=== PATIENT | male | born 1955 | race Caucasian/White ===

== ENCOUNTER → 2018-07-10 | Outpatient (CLI) | payer OTHER ==
[~2018-07-10] MED LIST: ASP325T PO; ATOR40TA PO; EZET1TAB53 PO; OMEP-10 PO; OXYC-12 PO
== END | disposition home or self-care (01) ==
LOC: PREOP 05:59
PROVIDERS: ATTEND Surgery
DX: Z01.818 Encounter for other preprocedural examination (principal)

== ENCOUNTER 2019-02-01 05:36 | Outpatient (CLI) | payer BC ==
[~2019-02-01] VITALS: Ht 177 cm; Wt 91.3 kg
[2019-02-01] MEDS ORDERED: GABA-488 PO (11:47)
[2019-02-01] MEDS ORDERED: SIMV20TA3 PO (11:47)
[2019-02-01] MEDS ORDERED: HYDR-3820 PO (11:47)
[2019-02-01] MEDS ORDERED: PANT40TA3 PO (11:47)
[2019-02-01] MEDS ORDERED: CYCL10TA9 PO (11:47)
[2019-02-01] MEDS ORDERED: VENL37.52 PO (11:47)
== END 2019-02-01 11:48 | disposition home or self-care (01) ==
LOC: PREOP 05:36
PROVIDERS: ATTEND Surgery
DX: Z01.818 Encounter for other preprocedural examination (principal)

== ENCOUNTER → 2019-06-12 | Outpatient (CLI) | payer BC ==
[~2019-06-12] MED LIST changes: +CYCL10TA9 PO; +GABA-488 PO; +HYDR-3820 PO; +PANT40TA3 PO; +SIMV20TA26 PO; +VENL37.52 PO
== END | disposition home or self-care (01) ==
LOC: PREOP 05:30
PROVIDERS: ATTEND Surgery
DX: Z01.818 Encounter for other preprocedural examination (principal)

== ENCOUNTER → 2019-07-09 | Outpatient (CLI) | payer BC, OTHER ==
[~2019-07-09] MED LIST changes: +ACHYD1T PO; -HYDR-3820 PO
--- NOTE | 2019-07-09 12:41 | Diagnostic Imaging Report ---
INDICATION: Pain COMPARISON: None available. TECHNIQUE: Two radiographs of the right knee are dated 07/09/2019. FINDINGS: No acute fracture or dislocation. No destructive osseous process. Mild medial joint space narrowing. Minimal lateral joint space narrowing. Tricompartment osteophytosis, mild in severity, greatest within the medial compartment. No significant joint effusion. No suspicious radiopaque foreign body. IMPRESSION: No acute osseous abnormality with mild degenerative changes. Dictated by: Dictated on workstation # [id number]
--- NOTE | 2019-07-09 12:47 | Diagnostic Imaging Report ---
HISTORY: Right shoulder pain TECHNIQUE: 2 views of the right shoulder. COMPARISON: None FINDINGS: There are advanced degenerative changes in the right acromial clavicular joint. Mild degenerative changes seen in the glenohumeral joint. No acute fracture seen. Alignment appears normal. IMPRESSION: 1. Advanced degenerative changes in the right acromioclavicular joint with no acute osseous abnormalities seen. Dictated by: Dictated on workstation # [id number]
--- NOTE | 2019-07-09 12:53 | Diagnostic Imaging Report ---
INDICATION: Pain. COMPARISON: None available. TECHNIQUE: Three radiographs of the lumbar spine dated July 09, 2019. FINDINGS: Five lumbar-type vertebral bodies are present. Mild apex left curvature of the spine. No significant anterolisthesis or retrolisthesis. Besides endplate degenerative changes, vertebral body heights are well maintained. Moderate disc space height loss at L3/L4, L4/L5, and L5/S1 with mild disc space height loss at L1/L2 and L2/L3. Multilevel anterior osteophyte formation, particularly at L3/L4. Scattered facet joint degenerative changes, greatest within the lower lumbar spine. Prominent lateral osteophyte formation on the right at L4/L5 and on the left at L5/S1. The sacroiliac joints are intact. The pubic symphysis is intact. Surgical clips within the upper abdomen. No acute fracture or dislocation. IMPRESSION: Mild apex left curvature of the spine with moderate multilevel degenerative changes, as described above, greatest at L4/L5 and L5/S1. Dictated by: Dictated on workstation # [id number]
== END ==
LOC: RAD 09:57
PROVIDERS: ATTEND Family Medicine
DX: Z02.71 Encounter for disability determination (principal); M47.817 Spondylosis without myelopathy or radiculopathy, lumbosacral region; M19.011 Primary osteoarthritis, right shoulder
CPT/HCPCS: 72100; 73030; 73560

== ENCOUNTER → 2020-09-10 | Outpatient (CLI) | payer BC ==
[~2020-09-10] MED LIST changes: -PANT40TA3 PO; +PANT40TA52 PO
--- NOTE | 2020-09-10 11:20 | Diagnostic Imaging Report ---
PROCEDURE: MR imaging cervical spine without contrast. TECHNIQUE: Multiplanar, multisequence MR imaging of the cervical spine was performed without contrast. INDICATION: Increasing neck pain. History of prior surgery. COMPARISON: None. FINDINGS: No acute fracture or dislocation is seen in the cervical spine. Postsurgical changes of laminectomy and posterior fusion are visualized from C3 to C7. There is straightening of the cervical spine. The vertebral body heights are well maintained. The bone marrow signal is unremarkable. No focal osseous lesions. The craniocervical junction is maintained. The cervical spinal cord demonstrates normal intrinsic signal. No epidural collections are seen. The included brainstem and posterior fossa have normal appearance. Multilevel degenerative changes are seen in the cervical spine with posterior disc bulges and uncovertebral arthropathy. C2-C3: Uncovertebral arthropathy results in no significant spinal canal narrowing and mild right and moderate left foraminal stenosis. C3-C4: Disc osteophyte complex and uncovertebral arthropathy results in no significant spinal canal narrowing and kbvr-ub-juwsiujq bilateral foraminal narrowing. C4-C5: Disc osteophyte complex and uncovertebral arthropathy results in no significant spinal canal narrowing and moderate right and mild left foraminal narrowing. C5-C6: Disc osteophyte complex and uncovertebral arthropathy results in no significant spinal canal narrowing and mild bilateral foraminal narrowing. C6-C7: Disc osteophyte complex and uncovertebral arthropathy results in no significant spinal canal narrowing and moderate right and gxvn-dy-qdukxpgn left foraminal stenosis. C7-T1: Uncovertebral arthropathy results in no significant spinal canal narrowing and nhqd-wi-kepnaxdd right and moderate left foraminal stenosis. The soft tissues of neck are unremarkable. IMPRESSION: 1. No acute fracture or dislocation of the cervical spine. 2. Multilevel degenerative changes in the cervical spine with varying degrees of foraminal stenosis throughout the cervical spine. 3. Postsurgical changes of posterior fusion and laminectomy from C3 to C7. There has been successful posterior decompression throughout the cervical spine. Dictated by: Dictated on workstation # [id number]
--- NOTE | 2020-09-10 12:56 | Diagnostic Imaging Report ---
TECHNIQUE: Multiplanar and multisequence MRI of the thoracic spine is performed without contrast. REASON FOR EXAM: Mid back pain. Worsening over time. COMPARISON: None. FINDINGS: No acute fracture or dislocation is seen in the thoracic spine. Alignment is anatomic. Vertebral body heights are maintained. Modic type I endplate degenerative changes are present at the T1-T2 and T2-T3 levels with Modic type II endplate degenerative changes at the T7-T8 level. No suspicious focal osseous lesions are identified. No evidence of acute spinal canal stenosis. The thoracic spinal cord demonstrates normal intrinsic signal. No evidence of cord expansion. No epidural collections are seen. Degenerative changes are seen in the thoracic spine with disc height loss, posterior disc bulges, marginal osteophytes, and facet hypertrophy. These are greatest at the T1-T2 level with mild spinal canal narrowing and moderate bilateral foraminal stenosis and at the T2-T3 level with mild to moderate spinal canal stenosis and moderate to severe right and moderate left foraminal stenosis. The soft tissues of the thoracic spine are unremarkable. Included lungs are clear. IMPRESSION: 1. No acute fracture or dislocation in the thoracic spine. 2. Multilevel degenerative changes in the thoracic spine, greatest in the upper thoracic spine at the T1-T2 and T2-T3 levels. 3. Modic type I endplate degenerative changes at the T1-T2 and T2-T3 levels. More chronic Modic type II endplate degenerative changes are present at T7-T8. Dictated by: Dictated on workstation # [id number]
== END ==
LOC: RAD 09:42
PROVIDERS: ATTEND Family Medicine
DX: M47.813 Spondylosis without myelopathy or radiculopathy, cervicothoracic region (principal); Z98.890 Other specified postprocedural states
CPT/HCPCS: 72141; 72146

== ENCOUNTER 2021-02-17 10:35 | Emergency (ER) | payer BC ==
[~2021-02-17] VITALS: Ht 175 cm; Wt 88.0 kg
--- OUTSIDE RECORDS SUMMARY | 2021-02-17 10:39 | XMS REPORT | Clinical Summary ---
Author Author [facility] Organization [facility] Address Unknown Phone Unavailable Care Team Providers Care Disability Insurance Hearing Officer Name Role Phone Seble Long MD PCP Source Comments Some departments are not documenting in the electronic medical record. If you d o not see the information that you expected, contact Release of Information in [facility] [employer] Information Management department at [phone] for further assistan ce in locating additional records.[facility] Allergies Comments Active Allergy Reactions Severity Noted Date lockjaw Prochlorperazine SEE COMMENTS Low 11/11/2020 Medications End Date Status Medication Sig Dispensed Refills Start Date Active duloxetine DR (CYMBALTA) 0 30 mg capsule 1 Active cyclobenzaprine 0 (FLEXERIL) 10 mg tablet 1 Active HYDROcodone/acetaminophen every 8 hours 0 04/25 (NORCO) 10/325 mg tablet 8 Active gabapentin (NEURONTIN) 1 capsule in 0 300 mg capsule the morning, 1 capsule in afternoon and 2 capsules at bedtime Active simvastatin (ZOCOR) 20 mg every 24 0 tablet hours. Active pantoprazole DR every 24 0 (PROTONIX) 40 mg tablet hours. 8 Active Problems Problem Noted Date S/P spinal surgery 11/11/2020 Spinal stenosis of lumbar region 11/11/2020 Abnormality of gait due to impairment of balance Immunizations Name Administration Dates Next Due Surgical History Surgery Date Site/Laterality Comments CERVICAL FUSION 04/25/2013 - C1-C7 Fusion - Dr. Sandor LYON 04/24/2014 CHOLECYSTECTOMY 04/25/2012 - 04/24/2013 Medical History Medical History Date Comments Acute angina (HCC) Arthritis Joint pain Nerve injury Family History Medical History Relation Name Comments Alzheimer's Father Arthritis Father Arthritis Mother COPD Mother Other Mother POLIO Cancer Other lung and breast Relation Name Status Comments Father Mother Alive Other Social History Date Tobacco Use Types Packs/Day Years Used Never Smoker Smokeless Tobacco: Chew Current User Comments Alcohol Use Standard Drinks/Week rarely Yes 0 (1 standard drink = 0.6 o z pure alcohol) Alcohol Habits Answer Date Recorded How often do you have a drink containing alcohol? Never 11/11/2020 How many drinks containing alcohol do you have on No t asked a typical day when you are drinking? How often do you have six or more drinks on one Not asked occasion? Comment: rarely 11/11/2020 Sex Assigned at Date Recorded Male 11/11/2020 7:57 AM CDT Last Filed Vital Signs Not on file Plan of Treatment Health Maintenance Due Date Last Done Comments HIV SCREENING 1972 DTAP/TDAP VACCINES (1 - 1975 Tdap) HEPATITIS C SCREENING 1975 PHYSICAL (COMPREHENSIVE) 1975 EXAM COLORECTAL CANCER 2007 SCREENING SHINGLES RECOMBINANT 2007 VACCINE (1 of 2) INFLUENZA VACCINE 11/23/2020 COVID-19 VACCINE Completed 07/29/2020, 07/01/2020 Results Not on filefrom Last 3 Months Insurance Type Payer Benefit Subscriber ID Effective Phone Address Plan / Dates Group PPO BCBS [facility] [id number] 2020-P [facility] resent BLUE Advance Directives Patient Licensed Sales Assistant Explanation Type Date Recorded Advance Directive/DPOA
[2021-02-17 11:01] LABS: BASOPHILS # (AUTO) 0.1 10^3/uL (0.0-0.1); BASOPHILS % (AUTO) 1 % (0-10); EOSINOPHILS # (AUTO) 0.3 10^3/uL (0.0-0.3); EOSINOPHILS % (AUTO) 3 % (0-10); HEMATOCRIT 45 % (40-54); HEMOGLOBIN 15.7 g/dL (13.3-17.7); LYMPHOCYTES # (AUTO) 3.5 10^3/uL (1.0-4.0); LYMPHOCYTES % (AUTO) 42 % (12-44); MEAN CORPUSCULAR HEMOGLOBIN 31 pg (25-34); MEAN CORPUSCULAR HGB CONC 35 g/dL (32-36); MEAN CORPUSCULAR VOLUME 88 fL (80-99); MEAN PLATELET VOLUME 9.1 fL (9.0-12.2); MONOCYTES # (AUTO) 0.5 10^3/uL (0.0-1.0); MONOCYTES % (AUTO) 6 % (0-12); NEUTROPHILS % (AUTO) 48 % (42-75); PLATELET COUNT 213 10^3/uL (130-400); WHITE BLOOD COUNT 8.4 10^3/uL (4.3-11.0)
[2021-02-17 11:08] LABS: ALBUMIN 4.1 GM/DL (3.2-4.5)
[2021-02-17] MEDS ORDERED: ASPIRIN 81 MG CHEW (CHILDREN'S ASA) ONE (11:08)
[2021-02-17 11:09] LABS: POTASSIUM 4.2 MMOL/L (3.6-5.0)
[2021-02-17 11:10] LABS: CALCIUM 9.5 MG/DL (8.5-10.1)
[2021-02-17 11:11] LABS: TOTAL PROTEIN 7.7 GM/DL (6.4-8.2)
[2021-02-17 11:13] LABS: BILIRUBIN,TOTAL 0.5 MG/DL (0.1-1.0)
[2021-02-17 11:15] LABS: CREATININE SERUM 1.36 MG/DL (0.60-1.30)
[2021-02-17] MEDS ORDERED: ASPIRIN 81 MG CHEW (CHILDREN'S ASA) PO ONE (11:15)
[2021-02-17 11:16] LABS: PROTHROMBIN TIME PATIENT 13.6 SEC (12.2-14.7)
--- NOTE | 2021-02-17 12:18 | Diagnostic Imaging Report ---
INDICATION: Chest pain Frontal chest obtained at 1209 p.m. There is no prior study for comparison. Heart and mediastinal silhouette are normal in appearance. The lungs are clear. There is no pneumothorax or pleural fluid. IMPRESSION: Negative chest. Dictated by: Dictated on workstation # [id number]
[2021-02-17] MEDS ORDERED: meTOprolol 5 MG/5 ML (LOPRESSOR) VIAL IV ONE (13:00)
[2021-02-17] MEDS ORDERED: METO-351 PO (13:26)
--- NOTE | 2021-02-17 13:27 | ED Chest Pain ---
General Chief Complaint: Cardiac/General Problems Stated Complaint: WEAKNESS;LOW PULSE;CHEST PAIN;SOA Nursing Triage Note: PT PRESENTS TO ED VIA POV FROM HOME WITH COMPLAINTS OF CP YESTERDAY, BRADYCARDIA, AND GENERALIZED WEAKNESS, SOA. PT REPORTS NO CP TODAY Source: patient Exam Limitations: no limitations History of Present Illness Date Seen by Provider: Feb 17, 2021 Initial Comments This 65-year-old gentleman presents to the emergency room by private vehicle after being seen in the [facility] clinic this morning. He was noted to have an irregular heartbeat in the 30s. Blood pressure was stable. Patient complained of chest pressure and dyspnea yesterday. He states the symptoms are better today. He has had history of cardiac cath in 2010 and 2013. He had a preop event in 2013 in which his "heart stopped" during intubation prior to the surgery. Heart cath after that event was unremarkable. 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 Allergies and Home Medications Allergies Coded Allergies: prochlorperazine (Verified Allergy, Severe, LOCKED JAW, 02/01/19) Patient Home Medication List Cyclobenzaprine HCl (Cyclobenzaprine HCl) 10 Mg Tablet, 10 MG PO TID PRN for SPASMS, (Reported) Entered as Reported by: GIANNA DIANA on 02/01/19 1147 Gabapentin (Gabapentin) 300 Mg Capsule, 300 MG PO TID, (Reported) Entered as Reported by: GIANNA DIANA on 02/01/19 1147 Hydrocodone Bit/Acetaminophen (HYDROcodone/APAP 10/325 TABLET) 1 Each Tablet, 1 TAB PO Q6H, (Reported) Entered as Reported by: GIANNA DIANA on 02/01/19 1147 Metoprolol Succinate (Toprol Xl) 25 Mg Tab.er.24h, 25 MG PO DAILY Prescribed by: KIRK EWING on 02/17/21 1326 Pantoprazole Sodium (Pantoprazole Sodium) 40 Mg Tablet.dr, 40 MG PO DAILY, (Reported) Entered as Reported by: GIANNA DIANA on 02/01/19 1147 Simvastatin (Simvastatin) 20 Mg Tablet, 20 MG PO HS, (Reported) Entered as Reported by: GIANNA DIANA on 02/01/19 1147 Venlafaxine HCl (Effexor Xr) 37.5 Mg Cap.er.24h, 37.5 MG PO DAILY, (Reported) Entered as Reported by: GIANNA DIANA on 02/01/19 1147 Past Ptetwht-Hzsjre-Appurz Hx Patient Social History Tobacco Use?: No Smokeless Tobacco Frequency: Current Everyday User Substance use?: No Alcohol Use?: Yes Alcohol Frequency: Once in a while Pt feels they are or have been: No Immunizations Up To Date First/Initial COVID19 Vaccinat: JUNE 2020 Second COVID19 Vaccination Abel: JULY 2020 COVID19 Vaccine Architectural Renderer: MODERNA Seasonal Allergies Seasonal Allergies: Yes Past Medical History Surgery/Hospitalization HX: SX-GALLBLADDER, HEART CATH- NO STENT. PMH- ARTHRITIS, CHRONIC BACK PAIN, HYPERTENSION Surgeries: Yes (HERNIA, NECK SURGERY) Gallbladder Respiratory: Yes (SOB WITH EXERTION) Cardiac: No Neurological: No Reproductive Disorders: No Sexually Transmitted Disease: No HIV/AIDS: No Genitourinary: No Gastrointestinal: Yes (BLOOD IN STOOLS/WEIGHT LOSS) Gastroesophageal Reflux, Chronic Diarrhea Musculoskeletal: Yes Arthritis, Chronic Back Pain Endocrine: No HEENT: Yes (GLASSES) Loss of Vision: Denies Hearing Impairment: Denies Cancer: No Psychosocial: Yes Anxiety Integumentary: No Blood Disorders: No Adverse Reaction/Blood Tranf: No (N/A) Physical Exam Vital Signs Vital Signs - First Documented 02/17/21 10:35 Temp 36.6 Pulse 38 Resp 20 B/P (MAP) 149/96 (113) Pulse Ox 99 Capillary Refill : Less Than 3 Seconds Height, Weight, BMI Height: 5'8.00" Weight: 221lbs. 0.0oz. 100.097903fa; 28.00 BMI Method: Progress/Results/Core Measures Results/Orders Lab Results Laboratory Tests Test 02/17/21 10:50 02/17/21 11:00 Range/Units White Blood Count 8.4 4.3-11.0 10^3/uL Red Blood Count 5.14 4.30-5.52 10^6/uL Hemoglobin 15.7 13.3-17.7 g/dL Hematocrit 45 40-54 % Mean Corpuscular Volume 88 80-99 fL Mean Corpuscular Hemoglobin 31 25-34 pg Mean Corpuscular Hemoglobin Concent 35 32-36 g/dL Red Cell Distribution Width 13.2 10.0-14.5 % Platelet Count 213 130-400 10^3/uL Mean Platelet Volume 9.1 9.0-12.2 fL Immature Granulocyte % (Auto) 1 % Neutrophils (%) (Auto) 48 42-75 % Lymphocytes (%) (Auto) 42 12-44 % Monocytes (%) (Auto) 6 0-12 % Eosinophils (%) (Auto) 3 0-10 % Basophils (%) (Auto) 1 0-10 % Neutrophils # (Auto) 4.0 1.8-7.8 10^3/uL Lymphocytes # (Auto) 3.5 1.0-4.0 10^3/uL Monocytes # (Auto) 0.5 0.0-1.0 10^3/uL Eosinophils # (Auto) 0.3 0.0-0.3 10^3/uL Basophils # (Auto) 0.1 0.0-0.1 10^3/uL Immature Granulocyte # (Auto) 0.0 0.0-0.1 10^3/uL Prothrombin Time 13.6 12.2-14.7 SEC INR Comment 1.0 0.8-1.4 Activated Partial Thromboplast Time 30 24-35 SEC Sodium Level 136 135-145 MMOL/L Potassium Level 4.2 3.6-5.0 MMOL/L Chloride Level 105 98-107 MMOL/L Carbon Dioxide Level 21 21-32 MMOL/L Anion Gap 10 5-14 MMOL/L Blood Urea Nitrogen 18 7-18 MG/DL Creatinine 1.36 H 0.60-1.30 MG/DL Estimat Glomerular Filtration Rate 53 BUN/Creatinine Ratio 13 Glucose Level 105 70-105 MG/DL Calcium Level 9.5 8.5-10.1 MG/DL Corrected Calcium 9.4 8.5-10.1 MG/DL Magnesium Level 2.0 1.6-2.4 MG/DL Total Bilirubin 0.5 0.1-1.0 MG/DL Aspartate Amino Transf (AST/SGOT) 32 5-34 U/L Alanine Aminotransferase (ALT/SGPT) 47 0-55 U/L Alkaline Phosphatase 72 40-136 U/L Myoglobin 61.9 10.0-92.0 NG/ML Troponin I < 0.028 <0.028 NG/ML Total Protein 7.7 6.4-8.2 GM/DL Albumin 4.1 3.2-4.5 GM/DL Thyroid Stimulating Hormone (TSH) 1.49 0.35-4.94 UIU/ML Free Thyroxine 0.86 0.70-1.48 NG/DL Influenza Type A (RT-PCR) Not Detected Not Detecte Influenza Type B (RT-PCR) Not Detected Not Detecte SARS-CoV-2 RNA (RT-PCR) Not Detected Not Detecte My Orders Orders - KIRK HOLLOWAY MD Cbc With Automated Diff (02/17/21 10:43) Magnesium (02/17/21 10:43) Chest 1 View, Ap/Pa Only (02/17/21 10:43) Ekg Tracing (02/17/21 10:43) Comprehensive Metabolic Panel (02/17/21 10:43) Myoglobin Serum (02/17/21 10:43) Protime With Inr (02/17/21 10:43) Partial Thromboplastin Time (02/17/21 10:43) O2 (02/17/21 10:43) Monitor-Rhythm Ecg Trace Only (02/17/21 10:43) Ed Iv/Invasive Line Start (02/17/21 10:43) Troponin I (02/17/21 10:43) Covid 19 Inhouse Test (02/17/21 10:52) Aspirin Chewable Tablet (Baby Aspirin Ch (02/17/21 11:15) Aspirin Chewable Tablet (Baby Aspirin Ch (02/17/21 11:08) Influenza A And B By Pcr (02/17/21 11:52) Metoprolol Tartrate Injection (Lopressor (02/17/21 13:00) Thyroid Stimulating Hormone (02/17/21 14:48) Free T4 (Free Thyroxine) (02/17/21 14:48) Medications Given in ED Current Medications Medications Dose Ordered Sig/Chelsea Route Start Time Stop Time Status Last Admin Dose Admin Aspirin 243 mg ONCE ONCE PO 02/17/21 11:15 02/17/21 11:16 DC 02/17/21 11:12 243 MG Metoprolol Tartrate 5 mg ONCE ONCE IV 02/17/21 13:00 02/17/21 13:01 DC 02/17/21 13:03 5 MG Vital Signs/I&O 02/17/21 02/17/21 10:35 13:54 Temp 36.6 Pulse 38 51 Resp 20 18 B/P (MAP) 149/96 (113) 129/86 Pulse Ox 99 97 Blood Pressure Mean: 113 Progress Progress Note : Progress Note Patient demonstrated bradycardia in the upper 30s when first checked into the ER. This resolved within his first few minutes in the exam room. From then on he exhibited a heart rate in the upper 50s to lower 60s. He had numerous PVCs and at various times was in trigeminy. This was discussed with Dr. Lyon. He recommended administering a beta-brigitte and attempt to resolve the PVCs and improve the heart rate. He recommended starting with Lopressor 5 mg IV to determine how he would tolerate beta-blockers. He tolerated this quite well and maintain his blood pressure. PVCs spaced out widely after Lopressor. We discussed options for disposition including starting Toprol-XL and following up as an outpatient to have a stress test and echo versus admission for closer monitoring and expedited stress test and echo. Patient states that he has a disabled son at home and he would much prefer to follow-up as an outpatient so he can care for his son. See discharge instructions for further discussion. He was discharged in stable condition. Initial ECG Impression Date: Feb 17, 2021 Initial ECG Impression Time: 10:41 Initial ECG Rate: 68 Initial ECG Rhythm: Normal Sinus Comment Sinus rhythm with no ST elevation or depression. There are numerous PVCs. No clear axis deviation or abnormal intervals. Departure Impression Primary Impression: Symptomatic bradycardia Additional Impressions: Dyspnea Qualified Codes: R06.00 - Dyspnea, unspecified Trigeminy Disposition: 01 HOME, SELF-CARE Condition: Improved Departure-Patient Inst. Decision time for Depature: 13:24 Referrals: DIONI GARCIA MD (PCP/Family) Primary Care Physician Patient Instructions: Bradycardia Add. Discharge Instructions: Continue your usual medications including aspirin 81 mg daily. Add Toprol-XL 25 mg daily. 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 Then start taking it each morning. Contact Dr. August's office and Dr. Garcia's office to schedule follow-up soon as possible. Please call today to make arrangements. If any activity causes shortness of breath or chest discomfort, please stop that activity and rest. If symptoms do not resolve with rest promptly, return to the ER. Return to the ER if you have any other worsening of symptoms. Call with any questions or concerns. All discharge instructions reviewed with patient and/or family. Voiced understanding. Scripts Metoprolol Succinate (Toprol Xl) 25 Mg Tab.er.24h 25 MG PO DAILY, #30 TAB Prov: KIRK HOLLOWAY MD 02/17/21 Copy Copies To 1: MARY KAY LYON MD Copies To 2: DIOIN GARCIA MD, JOSHUA T MD Feb 17, 2021 13:27
[2021-02-17 13:54] VITALS: BP 129/86
[2021-02-17 15:34] LABS: FREE T4 (FREE THYROXINE) 0.86 NG/DL (0.70-1.48)
== END 2021-02-17 13:54 | disposition home or self-care (01) ==
LOC: EDUNIT# 10:35 → ER 10:36
DX: R00.1 Bradycardia, unspecified (principal); R06.00 Dyspnea, unspecified; R00.8 Other abnormalities of heart beat; I10 Essential (primary) hypertension; K21.9 Gastro-esophageal reflux disease without esophagitis; F41.9 Anxiety disorder, unspecified; G89.29 Other chronic pain; M54.9 Dorsalgia, unspecified; F17.290 Nicotine dependence, other tobacco product, uncomplicated; Z20.822 Contact with and (suspected) exposure to COVID-19; Z79.899 Other long term (current) drug therapy; Z79.891 Long term (current) use of opiate analgesic
CPT/HCPCS: 36415; 71045; 80053; 83735; 83874; 84439; 84443; 84484; 85025; 85610; 85730; 87636; 93005; 93041

== ENCOUNTER → 2021-04-01 | Outpatient (CLI) | payer BC ==
[~2021-04-01] MED LIST changes: +CYCL10TA25 PO; -CYCL10TA9 PO; +METO-351 PO
== END ==
LOC: CARD 09:30
PROVIDERS: ATTEND Internal Medicine Cardiovascular Disease
DX: I51.7 Cardiomegaly (principal)
CPT/HCPCS: 93225; 93226; 93306

== ENCOUNTER → 2021-04-03 | Outpatient (CLI) | payer BC ==
[~2021-04-03] MED LIST changes: +CATHETER FLUSH 10 ML SYR IV PRN; +REGADENOSON 0.4 MG/5 ML SYR (LEXISCAN) IV ONE
[2021-04-03 09:12] VITALS: BP 144/89
--- NOTE | 2021-04-03 17:16 | STRESS TEST ---
DATE OF SERVICE: 04/03/2021 RESTING AND POST REGADENOSON TECHNETIUM-99M TETROFOSMIN SPECT CT IMAGING ORDERING PHYSICIAN: Dr. August. PRIMARY PHYSICIAN: Dr. Long. CLINICAL DIAGNOSIS: Shortness of breath. Baseline images were carried out after injection of 10.85 mCi of technetium-99m Tetrofosmin. This was followed by 0.4 mg Regadenoson and 29.2 mCi of technetium-99m Tetrofosmin for stress imaging. The electrocardiogram showed sinus rhythm at baseline. It did not change significantly with the Regadenoson infusion. The patient noted mild shortness of breath following Regadenoson infusion, which resolved in a few minutes. Review of images at rest and following stress does not indicate any distinct perfusion defects consistent with significant myocardial ischemia or infarction. Gated images showed normal global left ventricular systolic function with normal regional wall motion. Left ventricular ejection fraction is calculated to be 69%. Left ventricular end-diastolic volume is 41 mL. TID is absent (1.07). CONCLUSIONS: 1. No evidence of significant myocardial ischemia or infarction on this study. 2. Normal regional wall motion. 3. Normal global left ventricular systolic function with a calculated ejection fraction of 69%. Job ID: [id number] DocumentID: [id number] Dictated Date: 04/03/2021 15:02:55 Roll Picker Date: 04/03/2021 17:15:39 Dictated By: MARIO AUGUST MD, MA, FACP, FACC,
== END ==
LOC: CARD 07:30
PROVIDERS: ATTEND Internal Medicine Cardiovascular Disease
DX: R06.02 Shortness of breath (principal)
CPT/HCPCS: 78452; 93017; A9502

== ENCOUNTER → 2021-12-18 | Outpatient (CLI) | payer MEDICARE, OTHER ==
[~2021-12-18] MED LIST changes: +HOLD METFORMIN - RECEIVED CONTRAST 20 ML VIAL IV SCH; +IOHEXOL 350 MG/ML 100 ML (OMNIPAQUE 350) VIAL IV ONE; +NS 100 ML (IVPB) BAG IV ONE; -REGADENOSON 0.4 MG/5 ML SYR (LEXISCAN) IV ONE
[2021-12-18 13:59] LABS: CREATININE SERUM 1.48 MG/DL (0.60-1.30)
--- NOTE | 2021-12-18 15:05 | Diagnostic Imaging Report ---
PROCEDURE: CT angiography of the head and CT angiography of the neck with and without contrast. TECHNIQUE: Contiguous noncontrast images were obtained from the skull base through the vertex. After intravenous contrast administration, helical CT angiography of the neck was performed. Source data was reformatted into 3D MIP projections. Delayed post contrast acquisition was also obtained. Auto Exposure Controls were utilized during the CT exam to meet ALARA standards for radiation dose reduction. INDICATION: Prior history of CVA. Patient had syncopal episode two weeks ago. COMPARISON: No prior studies are available for comparison. FINDINGS: Precontrast portion through the brain demonstrates the ventricles and sulci to be within normal limits. No sulcal effacement or midline shift is seen. No acute intra-axial or extra-axial hemorrhage is detected. Delayed postcontrast imaging through the brain shows no abnormal enhancing lesions. CT angiographic portion of the study shows a three-vessel branching pattern to the aortic arch. The right and left common carotid arteries are widely patent. Both carotid bifurcations are unremarkable. The right and left internal carotid arteries are widely patent. The left vertebral artery is dominant. Both vertebral arteries are widely patent. The basilar artery is patent. The right and left posterior cerebral arteries appear to be widely patent. The M1 and M2 branches of the right and left middle cerebral arteries are widely patent. Right and left anterior cerebral arteries are widely patent. No intracranial stenosis is seen. No thromboemboli or large vessel occlusion is detected. IMPRESSION: Unremarkable CT angiogram of the head and neck. Dictated by: Dictated on workstation # [id number]
== END ==
LOC: CARD 13:15
PROVIDERS: ATTEND Nurse Practitioner Family
DX: R55 Syncope and collapse (principal); Z86.73 Personal history of transient ischemic attack (TIA), and cerebral infarction without residual deficits
CPT/HCPCS: 36415; 70496; 70498; 82565; 84520; 93306

== ENCOUNTER 2021-12-22 08:00 | Day surgery (SDC) | payer MEDICARE, OTHER ==
[~2021-12-22] VITALS: Ht 170 cm; Wt 90.0 kg
[~2021-12-22 08:00] MED LIST changes: -CATHETER FLUSH 10 ML SYR IV PRN; -HOLD METFORMIN - RECEIVED CONTRAST 20 ML VIAL IV SCH; -IOHEXOL 350 MG/ML 100 ML (OMNIPAQUE 350) VIAL IV ONE; +LIDOCAINE 1% INJ 20 ML VIAL ONE; -NS 100 ML (IVPB) BAG IV ONE
--- NOTE | 2021-12-22 13:33 | OPERATIVE REPORT ---
DATE OF SERVICE: 12/22/2021 PREOPERATIVE DIAGNOSIS: Syncope. POSTOPERATIVE DIAGNOSIS: Syncope. PROCEDURE: Implantable loop recorder implantation. INDICATIONS: The patient is a 66-year-old gentleman with palpitations and who has also had syncope or near syncope. Implantable loop recorder implantation was carried out after having obtained an informed consent. DESCRIPTION OF PROCEDURE: [facility] The left prepectoral area was prepared and draped in the usual sterile fashion. Lidocaine 1% was used for local anesthesia. The tools provided with the Medtronic LINQ II device were used to make a subcutaneous pocket anterior to the fourth intercostal space on the left side into which the device was placed and the wound edges were closed using Steri-Strips and Dermabond. He tolerated the procedure well. Job ID: [id number] DocumentID: [id number] Dictated Date: 12/22/2021 08:40:59 Corrosion Technician Date: 12/22/2021 13:32:32 Dictated By: MARIO SALGADO MD, MA, FACP, FACC,
== END 2021-12-22 09:10 | disposition home or self-care (01) ==
LOC: CATH 08:00
PROVIDERS: ATTEND Internal Medicine Cardiovascular Disease
DX: R55 Syncope and collapse (principal); F17.220 Nicotine dependence, chewing tobacco, uncomplicated; K21.9 Gastro-esophageal reflux disease without esophagitis; E78.5 Hyperlipidemia, unspecified; Z86.73 Personal history of transient ischemic attack (TIA), and cerebral infarction without residual deficits; R00.2 Palpitations; I77.9 Disorder of arteries and arterioles, unspecified
CPT/HCPCS: 33285; C1764

== ENCOUNTER → 2021-12-29 | Outpatient (CLI) | payer MEDICARE, OTHER ==
[~2021-12-29] MED LIST changes: -LIDOCAINE 1% INJ 20 ML VIAL ONE; +REGADENOSON 0.4 MG/5 ML SYR (LEXISCAN) IV ONE
[2021-12-29] MEDS: CATHETER FLUSH 10 ML SYR IVP PRN ×2 (07:50→09:18)
[2021-12-29 09:17] VITALS: BP 142/88
--- NOTE | 2021-12-29 16:40 | STRESS TEST ---
DATE OF SERVICE: 12/29/2021 RESTING AND POST REGADENOSON TECHNETIUM-99M TETROFOSMIN SPECT CT IMAGING ORDERING PHYSICIAN: Erika Godinez APRN PRIMARY PHYSICIAN: Dr. Long. OTHER PHYSICIAN: Dr. Salgado. CLINICAL DIAGNOSIS: Syncope. Baseline images were carried out after injection of 10.25 mCi of technetium-99m Tetrofosmin. This was followed by 0.4 mg regadenoson and 30.3 mCi of technetium-99m Tetrofosmin for stress imaging. The electrocardiogram showed sinus rhythm at baseline. It did not change significantly with the regadenoson infusion. The patient tolerated the procedure well. Review of images at rest and following stress does not indicate any significant perfusion defects consistent with myocardial ischemia or infarction. Gated images show normal global left ventricular systolic function with normal regional wall motion. Left ventricular ejection fraction is calculated to be 62%. CONCLUSIONS: 1. No evidence of any significant myocardial ischemia or infarction on this study. 2. Normal regional wall motion. 3. Normal global left ventricular systolic function with a calculated ejection fraction of 62%. Job ID: [id number] DocumentID: [id number] Dictated Date: 12/29/2021 16:18:58 Order Checker Date: 12/29/2021 16:39:21 Dictated By: MARIO SALGADO MD, MA, FACP, FACC,
== END ==
LOC: CARD 07:45
PROVIDERS: ATTEND Nurse Practitioner Family
DX: R55 Syncope and collapse (principal)
CPT/HCPCS: 78452; 93017; A9502